=== PATIENT | female | born 1980 | race Hispanic/Latino ===

== ENCOUNTER 2022-02-26 17:25 | Outpatient (CLI) | payer BC | END 2022-02-26 17:26 | disposition home or self-care (01) | LOC: MADCT 17:25 | PROVIDERS: ATTEND Family Medicine | DX: S49.91XA Unspecified injury of right shoulder and upper arm, initial encounter (principal) ==

== ENCOUNTER 2023-04-12 15:24 | Emergency (ER) | payer BC ==
[2023-04-12] MEDS ORDERED: Sodium Chloride 0.9% 1,000 ML ONE (15:56)
[2023-04-12] MEDS ORDERED: diphenhydrAMINE 50 MG/ML VIAL ONE (15:56)
[2023-04-12] MEDS ORDERED: Metoclopramide HCl 10 MG (2 mL) VIAL ONE (15:56)
== END 2023-04-12 17:47 | disposition home or self-care (01) ==
LOC: MADERS 15:24
DX: G44.209 Tension-type headache, unspecified, not intractable (principal); E78.5 Hyperlipidemia, unspecified; I10 Essential (primary) hypertension; E66.9 Obesity, unspecified; Z79.899 Other long term (current) drug therapy; Z79.84 Long term (current) use of oral hypoglycemic drugs
CPT/HCPCS: 96361; 96374; 96375; J1200; J2765; J7050